=== PATIENT | male | born 1995 | race Caucasian/White ===

== ENCOUNTER 2017-09-07 14:32 | Emergency (ER) | payer SELFPAY ==
[2017-09-07] MEDS ORDERED: LORAZEPAM 2 MG/ML VIAL IV ONE (14:42)
[2017-09-07] MEDS ORDERED: DIPHENHYDRAMINE HCL IV 50 MG/ML VIAL IVP ONE (14:52)
[2017-09-07 14:54] LABS: BASO % 0.3 % (0-6); EOS % 0.1 % (0-6); GRAN % 73.4 % (47-80); HEMATOCRIT 43.1 % (42.0-52.0); HEMOGLOBIN 14.8 gm/dl (14.0-18.0); LYMPH % 15.9 % (16-45); MEAN CORPUSCULAR HEMOGLOBIN 28.8 pg (27-33); MEAN CORPUSCULAR HGB CONC 34.3 g/dl (32-36); MEAN PLATELET VOLUME 9.2 fl (7.4-10.4); MONO % 10.3 % (0-9); PLATELET COUNT 326 K/uL (130-400); RED BLOOD COUNT 5.13 M/uL (4.40-5.70); RED CELL DISTRIBUTION WIDTH 12.5 % (11.5-14.5); WHITE BLOOD COUNT W/O DIFF 10.3 K/uL (4.2-12.2)
[2017-09-07] MEDS ORDERED: 0.9 % SODIUM CHLORIDE 1,000 ML BAG IV ONE (14:57)
[2017-09-07 15:08] LABS: BLOOD UREA NITROGEN 9 mg/dL (6-20); CREATININE 0.8 mg/dL (0.7-1.2); EST GLOMERULAR FILTRATION RATE > 60 mL/min; TOTAL PROTEIN 8.1 g/dL (6.6-8.7)
[2017-09-07 15:10] LABS: GLUCOSE,RANDOM 135 mg/dL (74-109)
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
[2017-09-07 15:13] LABS: ALB/GLOB RATIO 1.4 (1.1-1.8); ALBUMIN 4.7 g/dL (4.0-5.0); ALKALINE PHOSPHATASE 67 U/L (40-129); ALT/SGPT 28 U/L (<41); AST/SGOT 39 U/L (10.0-50.0)
[2017-09-07 15:37] LABS: AMPHETAMINE SCREEN URINE NOT DETECTED; BARBITURATE SCREEN URINE NOT DETECTED; BENZODIAZEPINE SCREEN URINE NOT DETECTED; COCAINE SCREEN URINE NOT DETECTED; METHADONE SCREEN URINE NOT DETECTED; METHAMPHETAMINE SCREEN NOT DETECTED; OPIATE SCREEN URINE NOT DETECTED; OXYCODONE SCREEN URINE NOT DETECTED; PHENCYCLIDINE SCREEN URINE NOT DETECTED; PROPOXYPHENE SCREEN URINE NOT DETECTED; THC SCREEN URINE DETECTED; TRICYCLIC ANTIDEPRESSANT SCRN NOT DETECTED
== END 2017-09-07 15:48 | disposition left against medical advice (07) ==
LOC: ER 14:32
DX: G24.02 Drug induced acute dystonia (principal); R25.2 Cramp and spasm
CPT/HCPCS: 99284 ×2; 96374; 96375; 85025; 80053; 80305; J2060; J1200; J7030